=== PATIENT | male | born 2000 | race Caucasian/White ===

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

== ENCOUNTER → 2020-11-24 | Outpatient (CLI) | payer OTHER ==
[2020-11-24 12:26] LABS: BASO # 0.1 10*3/uL (0.0-0.1); BASO % 1.4 % (0.0-1.0); EOS # 0.1 10*3/uL (0.0-0.4); EOS % 2.4 % (1.0-4.0); HEMATOCRIT 46.5 % (42.0-52.0); LYMPH # 1.5 10*3/uL (1.3-4.4); LYMPH % 26.2 % (27.0-41.0); MEAN CELL VOLUME 91.5 fl (80.0-94.0); MEAN CORPUSCULAR HGB 30.9 pg (27.0-31.0); MEAN CORPUSCULAR HGB CONC 33.8 g/dl (33.0-37.0); MEAN PLATELET VOLUME 11.1 fl (9.6-12.3); MONO # 0.6 10*3/uL (0.1-1.0); MONO % 9.7 % (3.0-9.0); NEUT # 3.5 10*3/uL (2.3-7.9); PLATELET COUNT AUTOMATED 226 10*3/uL (130-400); RED BLOOD COUNT 5.08 10*6/uL (4.50-5.90); RED CELL DISTRI WIDTH 12.2 % (0-14.5); WHITE BLOOD COUNT 5.9 10*3/uL (4.8-10.8)
[2020-11-24 12:42] LABS: ALKALINE PHOSPHATASE 149 U/L (45-117); BUN 11 mg/dl (7-24); CHLORIDE 101 mmol/L (98-107); CHOLESTEROL 225 mg/dL (<200); CPK 61 U/L (39-308); CREATININE 0.86 mg/dL (0.70-1.30); HDL CHOLESTEROL 34 mg/dl (40-60); POTASSIUM 4.1 mmol/L (3.5-5.1); SGOT/AST 20 IU/L (3-35); SGPT/ALT 38 U/L (12-78); SODIUM 136 mmol/L (136-145); TOTAL PROTEIN 7.1 gm/dL (6.4-8.2); TRIGLYCERIDES 728 mg/dl (<150)
[2020-11-26 15:06] LABS: CREATININE, RANDOM URINE 122.8 mg/dL (Not Estab.)
[2020-11-27 19:10] LABS: METANEPH-CREAT RATIO 0.2 (0.0-1.0)
== END | disposition home or self-care (01) ==
LOC: LAB 12:06
PROVIDERS: ATTEND Pediatrics
DX: Z00.00 Encounter for general adult medical examination without abnormal findings (principal)

== ENCOUNTER 2021-05-08 17:30 | Emergency (ER) | payer OTHER ==
[~2021-05-08] VITALS: Ht 175.2 cm; Wt 63.5 kg
[2021-05-08 18:49] LABS: BASO # 0.1 10*3/uL (0.0-0.1); BASO % 0.4 % (0.0-1.0); EOS % 0.3 % (1.0-4.0); HEMATOCRIT 43.2 % (42.0-52.0); LYMPH # 0.9 10*3/uL (1.3-4.4); LYMPH % 5.6 % (27.0-41.0); MEAN CELL VOLUME 89.3 fl (80.0-94.0); MEAN CORPUSCULAR HGB 30.6 pg (27.0-31.0); MEAN CORPUSCULAR HGB CONC 34.3 g/dl (33.0-37.0); MEAN PLATELET VOLUME 11.5 fl (9.6-12.3); MONO % 6.4 % (3.0-9.0); NEUT # 13.3 10*3/uL (2.3-7.9); PLATELET COUNT AUTOMATED 227 10*3/uL (130-400); RED BLOOD COUNT 4.84 10*6/uL (4.50-5.90); RED CELL DISTRI WIDTH 11.3 % (0-14.5); WHITE BLOOD COUNT 15.3 10*3/uL (4.8-10.8)
[2021-05-08 19:02] LABS: ALBUMIN 3.8 gm/dl (3.1-4.5); ALKALINE PHOSPHATASE 130 U/L (45-117); BUN 16 mg/dl (7-24); CHLORIDE 105 mmol/L (98-107); CREATININE 0.85 mg/dL (0.70-1.30); LIPASE 244 U/L (73-393); POTASSIUM 3.4 mmol/L (3.5-5.1); SGOT/AST 13 IU/L (3-35); SGPT/ALT 30 U/L (12-78); SODIUM 134 mmol/L (136-145)
[2021-05-08 19:53] LABS: BILIRUBIN Negative (Negative); BLOOD Negative (Negative); CLARITY Clear (Clear); COLOR Yellow (Yellow); GLUCOSE 3+ (Negative); KETONE 3+ (Negative); LEUKO ESTERASE Negative (Negative); NITRITE Negative (Negative); SPECIFIC GRAVITY >= 1.030 (1.001-1.030)
[2021-05-08 20:35] LABS: EPITHELIAL CELLS 0-2
[2021-05-08 20:36] LABS: RBC 0-2 rbc/hpf (0-2)
== END 2021-05-08 19:42 | disposition home or self-care (01) ==
LOC: ED 17:30
PROVIDERS: Emergency Medicine
DX: E10.65 Type 1 diabetes mellitus with hyperglycemia (principal); E87.6 Hypokalemia; Z79.899 Other long term (current) drug therapy

== ENCOUNTER 2021-06-06 08:31 | Emergency (ER) | payer OTHER ==
[~2021-06-06] VITALS: Ht 175.2 cm; Wt 68.0 kg
[2021-06-06 10:52] LABS: BASO # 0.1 10*3/uL (0.0-0.1); BASO % 1.3 % (0.0-1.0); EOS # 0.1 10*3/uL (0.0-0.4); EOS % 1.9 % (1.0-4.0); HEMATOCRIT 45.8 % (42.0-52.0); LYMPH # 1.6 10*3/uL (1.3-4.4); LYMPH % 26.1 % (27.0-41.0); MEAN CORPUSCULAR HGB 30.3 pg (27.0-31.0); MEAN CORPUSCULAR HGB CONC 33.6 g/dl (33.0-37.0); MEAN PLATELET VOLUME 11.6 fl (9.6-12.3); MONO # 0.5 10*3/uL (0.1-1.0); MONO % 9.1 % (3.0-9.0); NEUT # 3.6 10*3/uL (2.3-7.9); NEUT % 61.3 % (47.0-73.0); PLATELET COUNT AUTOMATED 244 10*3/uL (130-400); RED BLOOD COUNT 5.09 10*6/uL (4.50-5.90); RED CELL DISTRI WIDTH 11.5 % (0-14.5); WHITE BLOOD COUNT 5.9 10*3/uL (4.8-10.8)
[2021-06-06 11:06] LABS: ALBUMIN 3.9 gm/dl (3.1-4.5); BUN 24 mg/dl (7-24); CHLORIDE 107 mmol/L (98-107); CREATININE 0.78 mg/dL (0.70-1.30); LIPASE 127 U/L (73-393); POTASSIUM 4.2 mmol/L (3.5-5.1); SODIUM 137 mmol/L (136-145)
[2021-06-06 11:32] LABS: ALKALINE PHOSPHATASE 98 U/L (45-117); SGOT/AST 11 IU/L (3-35); SGPT/ALT 32 U/L (12-78); TOTAL PROTEIN 6.7 gm/dL (6.4-8.2)
[2021-06-06] MEDS ORDERED: PEPCID20 MG PO (15:15)
== END 2021-06-06 15:20 | disposition home or self-care (01) ==
LOC: ED 08:31
PROVIDERS: Emergency Medicine
DX: K29.00 Acute gastritis without bleeding (principal)

== ENCOUNTER 2021-06-17 17:33 | Emergency (ER) | payer OTHER ==
[~2021-06-17 17:33] MED LIST changes: +PEPCID20 MG PO
[2021-06-17] MEDS ORDERED: AUGMENTIN 875875 MG PO (20:04)
== END 2021-06-17 20:30 | disposition home or self-care (01) ==
LOC: ED 17:33
DX: S62.634A Displaced fracture of distal phalanx of right ring finger, initial encounter for closed fracture (principal); Z79.2 Long term (current) use of antibiotics; Z79.899 Other long term (current) drug therapy; W22.09XA Striking against other stationary object, initial encounter; Y93.89 Activity, other specified; Y92.89 Other specified places as the place of occurrence of the external cause; Y99.8 Other external cause status

== ENCOUNTER → 2021-08-15 | Outpatient (CLI) | payer OTHER ==
[~2021-08-15] MED LIST changes: +AUGMENTIN 875875 MG PO
== END | disposition home or self-care (01) ==
LOC: COVID19 17:28
PROVIDERS: ATTEND Student in an Organized Health Care Education/Training Program
DX: U07.1 COVID-19 (principal)

== ENCOUNTER 2022-06-17 18:26 | Emergency (ER) | payer OTHER ==
[~2022-06-17] VITALS: Ht 175.2 cm; Wt 72.6 kg
[2022-06-17] MEDS ORDERED: VIBRA-TAB100 MG PO (19:32)
== END 2022-06-17 19:38 | disposition home or self-care (01) ==
LOC: ED 18:26
DX: J32.1 Chronic frontal sinusitis (principal); M94.0 Chondrocostal junction syndrome [Tietze]

== ENCOUNTER 2023-02-14 15:16 | Emergency (ER) | payer OTHER ==
[~2023-02-14] VITALS: Ht 175.2 cm; Wt 72.6 kg
[~2023-02-14 15:16] MED LIST changes: +VIBRA-TAB100 MG PO
[2023-02-14] MEDS ORDERED: LANTUS SOL100 UNIT/1 SC (15:35)
[2023-02-14] MEDS ORDERED: VIBRAMYCIN100 MG PO (16:03)
== END 2023-02-14 16:21 | disposition home or self-care (01) ==
LOC: ED 15:16
DX: S30.861A Insect bite (nonvenomous) of abdominal wall, initial encounter (principal); E11.9 Type 2 diabetes mellitus without complications; W57.XXXA Bitten or stung by nonvenomous insect and other nonvenomous arthropods, initial encounter; Y93.89 Activity, other specified; Y92.89 Other specified places as the place of occurrence of the external cause; Y99.8 Other external cause status

== ENCOUNTER 2025-07-21 02:47 | Emergency (ER) | payer OTHER ==
[~2025-07-21] VITALS: Ht 175.2 cm; Wt 77.1 kg
[~2025-07-21 02:47] MED LIST changes: +LANTUS SOL100 UNIT/1 SC; +VIBRAMYCIN100 MG PO
[2025-07-21] MEDS ORDERED: INSULIN REGULAR, HUMAN 1 UNIT/0.01 ML SC ONE (03:45)
[2025-07-21] MEDS ORDERED: Bacitracin Zinc 14 GM TUBE T ONE (03:50)
== END 2025-07-21 03:55 ==
LOC: ED
DX: S80.211A Abrasion, right knee, initial encounter (principal); E16.2 Hypoglycemia, unspecified; Z79.899 Other long term (current) drug therapy; Z79.4 Long term (current) use of insulin; V28.49XA Other motorcycle driver injured in noncollision transport accident in traffic accident, initial encounter; Y93.89 Activity, other specified; Y92.89 Other specified places as the place of occurrence of the external cause; Y99.8 Other external cause status